=== PATIENT | male | born 1975 | race American Indian/Alaskan Native ===

== ENCOUNTER 2019-09-01 17:08 | Emergency (ER) | payer SELFPAY ==
[2019-09-01 17:49] VITALS: BP 129/85
[2019-09-01] MEDS ORDERED: LIDOCAINE-MPF (1%) 10 MG/1 ML VIAL 5 ML INFILTRATI ONE (18:23)
[2019-09-01] MEDS ORDERED: AZITHROMYCIN 250 MG TAB PO ONE (18:23)
[2019-09-01] MEDS ORDERED: metroNIDAZOLE 500 MG TAB PO ONE (18:23)
--- NOTE | 2019-09-01 18:28 | Emergency Department Report ---
Chief Complaint: Urogenital-Male Stated Complaint: CHECK UP Time Seen by Provider: 09/01/19 17:48 - HPI History of Present Illness: 44 y o male presents for concerns for STD states that he is having premature ejaculation x 2 weeks now Patient states that this is not normal for him. Patient states that he is unsure if he has an STD. Patient states that he did not have any penile discharge or lesions. Patient denies testicular pain, pelvic or abdominal pain, fever, chills, dysuria, nausea vomiting - ROS Review of Systems: as noted in HPI - Exam Vital Signs: Vital Signs 09/01/19 17:47 Temperature 97.8 F Pulse Rate 80 Respiratory 20 Rate Blood Pressure 129/85 [Right] O2 Sat by Pulse 98 Oximetry Physical Exam: GEN: Alert and oriented 3. Ambulatory with no problems ABD: Nontender to palpation. MSE screening note: Focused history and physical exam performed. Due to findings the following was ordered: ED Medical Decision Making - Medical Decision Making 44-year-old male presents with STD exposure. ED course: Patient requesting treatment in the ED. Patient received 250 mg of Rocephin, azithromycin 1 g, Flagyl 2 g. Discussed with patient possible STD due to exposure. Discussed with patient findings and treatment Discussed prophylaxis treatment patient is to abstain from sex 7-10 days as treatment. Discussed patient partner knowledge and treatment. Discussed the follow-up with the health department for further STD testing. Patient's alert and oriented times 3. Vital signs are normal patient is in no acute discharge. Patient will be discharged home with instructions. ED Disposition for MSE Clinical Impression: Encounter for assessment of STD exposure Disposition: - TO HOME OR SELFCARE Is pt being admited?: No Does the pt Need Aspirin: No Condition: Stable Instructions: Sexually Transmitted Diseases (ED), Safe Sex (ED) Additional Instructions: follow up [facility] for STD screening Referrals: PRIMARY CARE, [Primary Care Provider] - 3-5 Days [facility] [Outside] - 3-5 Days [facility] [Outside] - 3-5 Days [facility] [Outside] - 3-5 Days [facility] [Outside] - 3-5 Days Forms: Work/School Release Form(ED) Time of Disposition: 18:30
== END 2019-09-01 18:43 | disposition home or self-care (01) ==
LOC: ED 17:08
DX: Z20.2 Contact with and (suspected) exposure to infections with a predominantly sexual mode of transmission (principal)
CPT/HCPCS: 96372; 99282; J0696